=== PATIENT | female | born 1990 | race Caucasian/White ===

== ENCOUNTER 2021-10-07 14:47 | Emergency (ER) | payer OTHER ==
[~2021-10-07] VITALS: Ht 182.9 cm; Wt 65.9 kg
[2021-10-07 14:57] VITALS: TEMP 98.6
[2021-10-07] MEDS ORDERED: NORCO 325 MG-51 TAB PO (17:17)
[2021-10-07 17:35] VITALS: BP 120/80; PULSE 80
== END 2021-10-07 17:40 | disposition home or self-care (01) ==
LOC: COL.ER 14:47
DX: M25.551 Pain in right hip (principal)
CPT/HCPCS: J1885